=== PATIENT | female | born 1995 | race American Indian/Alaskan Native ===

== ENCOUNTER 2017-11-25 06:55 | Emergency (ER) | payer SELFPAY ==
[2017-11-25 07:27] LABS: Basophils # (Auto) 0.1 K/mm3 (0.0-0.1); Basophils % (Auto) 0.7 % (0.0-1.8); Eosinophils # (Auto) 0.1 K/mm3 (0.0-0.4); Eosinophils % (Auto) 1.2 % (0.0-4.3); Hematocrit 37.3 % (30.3-42.9); Hemoglobin 12.4 gm/dl (10.1-14.3); Lymphocytes % (Auto) 37.1 % (13.4-35.0); Mean Corpuscular HGB Conc 33 % (30-34); Mean Corpuscular Hemoglobin 28 pg (28-32); Mean Corpuscular Volume 84 fl (79-97); Monocytes # (Auto) 0.5 K/mm3 (0.0-0.8); Monocytes % (Auto) 6.2 % (0.0-7.3); Platelet Count 311 K/mm3 (140-440); Red Blood Count 4.42 M/mm3 (3.65-5.03); Red Cell Distribution Width 14.2 % (13.2-15.2)
[2017-11-25 07:28] LABS: Bilirubin,Urine NEG (Negative); Blood,Urine LG (Negative); Color,Urine Yellow (Yellow); Mucus,Urine FEW /HPF; Urobilinogen,Urine < 2.0 mg/dL (<2.0)
[2017-11-25 07:29] LABS: RBC,Urine > 182.0 /HPF (0.0-6.0); WBC,Urine > 182.0 /HPF (0.0-6.0)
[2017-11-25 07:42] LABS: Alanine Aminotransferase 11 units/L (7-56); Albumin 4.1 g/dL (3.9-5); BUN/Creatinine Ratio 13; Blood Urea Nitrogen 9 mg/dL (7-17); Calcium 9.2 mg/dL (8.4-10.2); Hemolysis Index 2
[2017-11-25] MEDS ORDERED: ROCEPHIN IM STA (07:59)
[2017-11-25] MEDS ORDERED: XYLOCAINE 1% MPF 5 mL INFILTRATI ONE (07:59)
--- NOTE | 2017-11-25 07:59 | Emergency Department Report ---
ED Abdominal Pain HPI - General Chief Complaint: Abdominal Pain Stated Complaint: ABD PAIN Time Seen by Provider: 11/25/17 07:48 Source: patient, family Mode of arrival: Ambulatory Limitations: No Limitations - History of Present Illness Initial Comments: This is a 22-year-old female reports urinary frequency and abdominal pain with some bleeding with urination that she noticed when she wiped. She said it started today and she ended her cycle 3 days ago. Denies any nausea or vomiting. Denies any fever or chills. Patient said she is here to be evaluated. Patient abdomen is crampy located to the pelvic area comes and goes and 5 out of 10. No alleviating or exacerbating factor and no medication taken for pain. Patient is a history of ectopic . She denies any urinary frequency or urgency. Unsure if she is . Denies passing any clots. MD Complaint: abdominal pain, other (urinary burning and left flank pain) Onset/Timin -: days(s) Location: suprapubic Radiation: none Migration to: no migration Severity: moderate Severity scale (0 -10): 5 Quality: cramping Consistency: intermittent Improves With: nothing Worsens With: nothing Associated Symptoms: dysuria, other (vaginal spotting). denies: nausea, vomiting, diarrhea, fever, chills, constipation, hematemesis, hematochezia, melena, hematuria, anorexia, syncope Treatments Prior to Arrival: other (none) - Related Data LMP Date: 11/18/17 Previous Rx's Medication Instructions Recorded Last Taken Type Ibuprofen [Motrin] 600 mg PO Q8H PRN #15 tablet 11/25/17 Unknown Rx Phenazopyridine [Pyridium] 200 mg PO TID PRN 3 Days #9 tab 11/25/17 Unknown Rx Sulfamethoxazole/Trimethoprim 1 each PO BID 10 Days #20 tablet 11/25/17 Unknown Rx [Bactrim DS TAB] Allergies Allergy/AdvReac Type Severity Reaction Status Date / Time No Known Allergies Allergy Unverified 11/25/17 07:09 ED Review of Systems ROS: Stated complaint: ABD PAIN Other details as noted in HPI Constitutional: denies: chills, fever Eyes: denies: eye pain, eye discharge, vision change ENT: denies: ear pain, throat pain Respiratory: denies: cough, shortness of breath, SOB with exertion, SOB at rest , wheezing Cardiovascular: denies: chest pain, palpitations, edema, syncope Gastrointestinal: abdominal pain. denies: nausea, vomiting, diarrhea, constipation, hematemesis, melena, hematochezia Genitourinary: dysuria, hematuria. denies: urgency, frequency, discharge, abnormal menses, dyspareunia Musculoskeletal: denies: back pain, joint swelling, arthralgia Skin: denies: rash, lesions Neurological: paresthesias. denies: headache, weakness, vertigo ED Past Medical Hx - Past Medical History Previous Medical History?: Yes Additional medical history: Ectopic - Surgical History Past Surgical History?: Yes Additional Surgical History: Ectopic - Family History Family history: no significant - Social History Smoking Status: Current Every Day Smoker Substance Use Type: Alcohol, Marijuana - Medications Home Medications: Home Medications Medication Instructions Recorded Confirmed Last Taken Type Ibuprofen [Motrin] 600 mg PO Q8H PRN #15 tablet 11/25/17 Unknown Rx Phenazopyridine [Pyridium] 200 mg PO TID PRN 3 Days #9 tab 11/25/17 Unknown Rx Sulfamethoxazole/Trimethoprim 1 each PO BID 10 Days #20 tablet 11/25/17 Unknown Rx [Bactrim DS TAB] ED Physical Exam - General Limitations: No Limitations General appearance: alert, in no apparent distress - Head Head exam: Present: atraumatic, normocephalic, normal inspection - Eye Eye exam: Present: normal appearance, PERRL, EOMI Pupils: Present: normal accommodation - ENT ENT exam: Present: normal exam, normal orophraynx, mucous membranes moist, TM's normal bilaterally, normal external ear exam - Neck Neck exam: Present: normal inspection, full ROM. Absent: tenderness, lymphadenopathy - Respiratory Respiratory exam: Present: normal lung sounds bilaterally. Absent: respiratory distress, chest wall tenderness - Cardiovascular Cardiovascular Exam: Present: regular rate, normal rhythm, normal heart sounds. Absent: systolic murmur, diastolic murmur - GI/Abdominal GI/Abdominal exam: Present: soft, normal bowel sounds. Absent: distended, tenderness, guarding, rebound, rigid, organomegaly, mass, bruit, pulsatile mass , hernia - Extremities Exam Extremities exam: Present: normal inspection, full ROM, normal capillary refill , other (my normal extremity exam). Absent: tenderness, pedal edema, joint swelling, calf tenderness - Back Exam Back exam: Present: normal inspection, full ROM, other (ambulates without any difficulties). Absent: tenderness, CVA tenderness (R), CVA tenderness (L), muscle spasm, paraspinal tenderness, vertebral tenderness, rash noted - Neurological Exam Neurological exam: Present: alert, oriented X3, normal gait - Psychiatric Psychiatric exam: Present: normal affect, normal mood - Skin Skin exam: Present: warm, dry, intact, normal color. Absent: rash ED Course Vital Signs 11/25/17 11/25/17 11/25/17 06:59 08: 09:15 Temperature 98.3 F Pulse Rate 89 86 Respiratory 18 16 16 Rate Blood Pressure 140/94 Blood Pressure 136/90 [Left] O2 Sat by Pulse 98 99 Oximetry - Reevaluation(s) Reevaluation #1: 11/25/17 09:05 Patient given Toradol 60 mg IM for abdominal cramping or relief and Rocephin 1 g IM for urinary tract infection. Reports relief of abdominal pain. ED Medical Decision Making - Lab Data Result diagrams: 11/25/17 07:14 11/25/17 07:14 Lab Results 11/25/17 11/25/17 11/25/17 Range/Units 07:14 07:14 07:14 WBC 8.2 (4.5-11.0) K/mm3 RBC 4.42 (3.65-5.03) M/mm3 Hgb 12.4 (10.1-14.3) gm/dl Hct 37.3 (30.3-42.9) % MCV 84 (79-97) fl MCH 28 (28-32) pg MCHC 33 (30-34) % RDW 14.2 (13.2-15.2) % Plt Count 311 (140-440) K/mm3 Lymph % (Auto) 37.1 H (13.4-35.0) % [place] % (Auto) 6.2 (0.0-7.3) % Eos % (Auto) 1.2 (0.0-4.3) % Baso % (Auto) 0.7 (0.0-1.8) % Lymph # 3.0 (1.2-5.4) K/mm3 [place] # 0.5 (0.0-0.8) K/mm3 Eos # 0.1 (0.0-0.4) K/mm3 Baso # 0.1 (0.0-0.1) K/mm3 Seg Neutrophils % 54.8 (40.0-70.0) % Seg Neutrophils # 4.5 (1.8-7.7) K/mm3 Sodium 140 (137-145) mmol/L Potassium 4.0 (3.6-5.0) mmol/L Chloride 105.2 (98-107) mmol/L Carbon Dioxide 26 (22-30) mmol/L Anion Gap 13 mmol/L BUN 9 (7-17) mg/dL Creatinine 0.7 (0.7-1.2) mg/dL Estimated GFR > 60 ml/min BUN/Creatinine Ratio 13 % Glucose 95 (65-100) mg/dL Calcium 9.2 (8.4-10.2) mg/dL Total Bilirubin 0.20 (0.1-1.2) mg/dL AST 16 (5-40) units/L ALT 11 (7-56) units/L Alkaline Phosphatase 49 (35-129) units/L Total Protein 7.6 (6.3-8.2) g/dL Albumin 4.1 (3.9-5) g/dL Albumin/Globulin Ratio 1.2 % HCG, Quant < 2 (0-4) mIU/mL Urine Color (Yellow) Urine Turbidity (Clear) Urine pH (5.0-7.0) Ur Specific Gunpowder (1.003-1.030) Urine Protein (Negative) mg/dL Urine Glucose (UA) (Negative) mg/dL Urine Ketones (Negative) mg/dL Urine Blood (Negative) Urine Nitrite (Negative) Urine Bilirubin (Negative) Urine Urobilinogen (<2.0) mg/dL Ur Leukocyte Esterase (Negative) Urine WBC (Auto) (0.0-6.0) /HPF Urine RBC (Auto) (0.0-6.0) /HPF U Epithel Cells (Auto) (0-13.0) /HPF Urine WBC Clumps /HPF Urine Mucus /HPF Blood Type Antibody Screen 11/25/17 11/25/17 Range/Units 07:14 Unknown WBC (4.5-11.0) K/mm3 RBC (3.65-5.03) M/mm3 Hgb (10.1-14.3) gm/dl Hct (30.3-42.9) % MCV (79-97) fl MCH (28-32) pg MCHC (30-34) % RDW (13.2-15.2) % Plt Count (140-440) K/mm3 Lymph % (Auto) (13.4-35.0) % [place] % (Auto) (0.0-7.3) % Eos % (Auto) (0.0-4.3) % Baso % (Auto) (0.0-1.8) % Lymph # (1.2-5.4) K/mm3 [place] # (0.0-0.8) K/mm3 Eos # (0.0-0.4) K/mm3 Baso # (0.0-0.1) K/mm3 Seg Neutrophils % (40.0-70.0) % Seg Neutrophils # (1.8-7.7) K/mm3 Sodium (137-145) mmol/L Potassium (3.6-5.0) mmol/L Chloride (98-107) mmol/L Carbon Dioxide (22-30) mmol/L Anion Gap mmol/L BUN (7-17) mg/dL Creatinine (0.7-1.2) mg/dL Estimated GFR ml/min BUN/Creatinine Ratio % Glucose (65-100) mg/dL Calcium (8.4-10.2) mg/dL Total Bilirubin (0.1-1.2) mg/dL AST (5-40) units/L ALT (7-56) units/L Alkaline Phosphatase (35-129) units/L Total Protein (6.3-8.2) g/dL Albumin (3.9-5) g/dL Albumin/Globulin Ratio % HCG, Quant (0-4) mIU/mL Urine Color Yellow (Yellow) Urine Turbidity Cloudy (Clear) Urine pH 7.0 (5.0-7.0) Ur Specific Gunpowder 1.015 (1.003-1.030) Urine Protein 100 mg/dl (Negative) mg/dL Urine Glucose (UA) Neg (Negative) mg/dL Urine Ketones Neg (Negative) mg/dL Urine Blood Lg (Negative) Urine Nitrite Neg (Negative) Urine Bilirubin Neg (Negative) Urine Urobilinogen < 2.0 (<2.0) mg/dL Ur Leukocyte Esterase Lg (Negative) Urine WBC (Auto) > 182.0 H (0.0-6.0) /HPF Urine RBC (Auto) > 182.0 (0.0-6.0) /HPF U Epithel Cells (Auto) 5.0 (0-13.0) /HPF Urine WBC Clumps 3+ /HPF Urine Mucus Few /HPF Blood Type A POSITIVE Antibody Screen Negative urine culture done - Radiology Data Radiology results: report reviewed CT scan abdomen and pelvis without contrast dictated by radiologist and report reviewed by myself. See below for details Patient: DIVYA SHORT MR#: [id number] : 1995 Acct:[id number] Age/Sex: 22 / F ADM Date: 11/25/17 Loc: ED Attending Dr: Ordering Physician: JERAD MALHOTRA Date of Service: 11/25/17 Procedure(s): CT abdomen pelvis wo con Accession Number(s): [id number] cc: JERAD MALHOTRA CT ABDOMEN PELVIS WITHOUT CONTRAST: HISTORY: Abdominal pain with hematuria and UTI. COMPARISON: none. TECHNIQUE: Helical CT in 1.25mm intervals without IV contrast. Sagittal and coronal reconstructions. FINDINGS: Lung bases: Normal. Liver: Normal. Biliary system: Normal. Pancreas: Normal. Spleen: Normal. Kidneys/ureters/bladder: The kidneys and ureters are normal. The bladder is empty but no gross abnormality is appreciated. No evidence for cystic disease, renal mass or nephrolithiasis on noncontrast CT. Adrenal glands: Normal. Aorta: Normal. Intestines: Normal. Appendix: Normal. Pelvic viscera: Normal. Ascites: None. Adenopathy: None. Musculoskeletal: Normal. IMPRESSION: Unremarkable CT scan of the abdomen and pelvis without contrast. Transcribed By: TTR Dictated By: COLLIN QUINTERO JR, MD Electronically Authenticated By: COLLIN QUINTERO JR, MD Signed Date/Time: 11/25/17827 DD/ 6 TD/TT: 11/25/17827 - Medical Decision Making This is a 22-year-old female here reporting pelvic pain, blood in urine and urinary burning. She says she finished her menstruation 11/18/2017 she is not sure if she is . She has a history of ectopic . Denies any nausea vomiting or fever or chills. She was seen and examined by myself. Physical exam is normal. Patient had urinalysis which shows she has acute cystitis with hematuria and urine culture was sent. CBC stable, hCG quantitative less than 2 and CMP is stable. Please refer to laboratory section for details and laboratory results. Patient also had CT scan of the abdomen and pelvis with IV contrast that shows unremarkable study. This is dictated by radiologist and report reviewed by myself. I discussed the patient that she has urinary tract infection and I also discussed laboratory findings the CT scan findings with her along with her test. She voiced understanding. Patient was treated with Rocephin for UTI and Toradol for abdominal pain. Dysuria-positive urinary tract infection and culture sent. Prescription for Pyridium Acute cystitis with hematuria-Rocephin 1 g IM 1 and patient discharged home with prescription for Atrovent DS. Abdominal pain-pain resolved. CT scan with negative findings, test is negative, CBC and CMP is stable. She was given Toradol 60 mg IM and discharged home with Motrin. Decision to surgeon in stable condition with prescription for Pyridium, Bactrim DS and Motrin and to follow up with her [employer] and/or [facility] in 2-3 days. She voiced understanding. Vital signs are stable she is afebrile and nontoxic in appearance and her pain is resolved. - Differential Diagnosis Kidney stones, Pyelonephritis, UTI, HCG, Fibroids Critical care attestation.: If time is entered above; I have spent that time in minutes in the direct care of this critically ill patient, excluding procedure time. ED Disposition Clinical Impression: Acute cystitis Qualifiers: Hematuria presence: with hematuria Qualified Code(s): N30.01 - Acute cystitis with hematuria Abdominal pain Qualifiers: Abdominal location: lower abdomen, unspecified Qualified Code(s): R10.30 - Lower abdominal pain, unspecified Disposition: - TO HOME OR SELFCARE Is pt being admited?: No Does the pt Need Aspirin: No Condition: Stable Instructions: Urinary Tract Infection in Women (ED), Dysuria (ED), Abdominal Pain (ED) Additional Instructions: Please increase her fluid intake Follow up a primary care physician in 2-3 days Take medication as prescribed Take Motrin with food as this medication can cause upset stomach Take Bactrim for urinary tract infection Prescriptions: Ibuprofen [Motrin] 600 mg PO Q8H PRN #15 tablet PRN Reason: Pain Phenazopyridine [Pyridium] 200 mg PO TID PRN 3 Days #9 tab PRN Reason: urinary burning and Sulfamethoxazole/Trimethoprim [Bactrim DS TAB] 1 each PO BID 10 Days #20 tablet Referrals: PRIMARY CARE, [Primary Care Provider] - 2-3 Days [facility] [Outside] - 2-3 Days Forms: Work/School Release Form(ED)
[2017-11-25] MEDS ORDERED: TORADOL IM ONE (08:00)
--- NOTE | 2017-11-25 08:34 | Cat Scan Report ---
CT ABDOMEN PELVIS WITHOUT CONTRAST: HISTORY: Abdominal pain with hematuria and UTI. COMPARISON: none. TECHNIQUE: Helical CT in 1.25mm intervals without IV contrast. Sagittal and coronal reconstructions. FINDINGS: Lung bases: Normal. Liver: Normal. Biliary system: Normal. Pancreas: Normal. Spleen: Normal. Kidneys/ureters/bladder: The kidneys and ureters are normal. The bladder is empty but no gross abnormality is appreciated. No evidence for cystic disease, renal mass or nephrolithiasis on noncontrast CT. Adrenal glands: Normal. Aorta: Normal. Intestines: Normal. Appendix: Normal. Pelvic viscera: Normal. Ascites: None. Adenopathy: None. Musculoskeletal: Normal. IMPRESSION: Unremarkable CT scan of the abdomen and pelvis without contrast.
[2017-11-25 09:17] VITALS: BP 136/90
== END 2017-11-25 09:15 | disposition home or self-care (01) ==
LOC: ED 06:55
DX: N30.01 Acute cystitis with hematuria (principal); F17.200 Nicotine dependence, unspecified, uncomplicated; F12.10 Cannabis abuse, uncomplicated
CPT/HCPCS: 36415; 74176; 80053; 81001; 84702; 85025; 86850; 86900; 86901; 96372; 99284; J0696; J1885

== ENCOUNTER 2017-12-22 22:14 | Emergency (ER) | payer SELFPAY ==
[2017-12-22 22:39] VITALS: BP 135/76
[2017-12-23] MEDS ORDERED: BENADRYL PO ONE (00:09)
[2017-12-23] MEDS ORDERED: REGLAN PO ONE (00:09)
[2017-12-23] MEDS ORDERED: TYLENOL PO ONE (00:09)
[2017-12-23] MEDS ORDERED: DECADRON IM ONE (00:09)
--- NOTE | 2017-12-23 00:29 | Emergency Department Report ---
ED ENT HPI - General Chief complaint: Sore Throat Stated complaint: SORE THROAT/MIGRAINE Time Seen by Provider: 12/23/17 00:00 Source: patient Mode of arrival: Ambulatory Limitations: No Limitations - History of Present Illness MD complaint: sore throat Onset/Timin -: days(s) Location: throat Severity: moderate Severity scale (0 -10): 5 Quality: burning, sharp Consistency: intermittent Improves with: none Worsens with: swallowing, position, eating Associated Symptoms: fever, toothache, pain with swallowing, sore throat, tinnitus, rhinorrhea - Related Data Previous Rx's Medication Instructions Recorded Last Taken Type Ibuprofen [Motrin] 600 mg PO Q8H PRN #15 tablet 11/25/17 Unknown Rx Phenazopyridine [Pyridium] 200 mg PO TID PRN 3 Days #9 tab 11/25/17 Unknown Rx Sulfamethoxazole/Trimethoprim 1 each PO BID 10 Days #20 tablet 11/25/17 Unknown Rx [Bactrim DS TAB] Acetaminophen [Tylenol Extra 1,000 mg PO QID PRN #60 tablet 12/23/17 Unknown Rx Strength] Amoxicillin 500 mg PO TID #30 capsule 12/23/17 Unknown Rx Benzocaine/Menth/Cetylpyrd 8 each MM Q2H PRN #3 packet 12/23/17 Unknown Rx [Cepacol X Strength] Metoclopramide [Reglan] 10 mg PO ACHS #30 tablet 12/23/17 Unknown Rx diphenhydrAMINE [Benadryl CAP] 25 mg PO Q6HR PRN #30 capsule 12/23/17 Unknown Rx Allergies Allergy/AdvReac Type Severity Reaction Status Date / Time No Known Allergies Allergy Verified 12/22/17 22:35 ED Dental HPI - General Chief complaint: Sore Throat Stated complaint: SORE THROAT/MIGRAINE Time Seen by Provider: 12/23/17 00:00 Source: patient Mode of arrival: Ambulatory Limitations: No Limitations - Related Data Previous Rx's Medication Instructions Recorded Last Taken Type Ibuprofen [Motrin] 600 mg PO Q8H PRN #15 tablet 11/25/17 Unknown Rx Phenazopyridine [Pyridium] 200 mg PO TID PRN 3 Days #9 tab 11/25/17 Unknown Rx Sulfamethoxazole/Trimethoprim 1 each PO BID 10 Days #20 tablet 11/25/17 Unknown Rx [Bactrim DS TAB] Acetaminophen [Tylenol Extra 1,000 mg PO QID PRN #60 tablet 12/23/17 Unknown Rx Strength] Amoxicillin 500 mg PO TID #30 capsule 12/23/17 Unknown Rx Benzocaine/Menth/Cetylpyrd 8 each MM Q2H PRN #3 packet 12/23/17 Unknown Rx [Cepacol X Strength] Metoclopramide [Reglan] 10 mg PO ACHS #30 tablet 12/23/17 Unknown Rx diphenhydrAMINE [Benadryl CAP] 25 mg PO Q6HR PRN #30 capsule 12/23/17 Unknown Rx Allergies Allergy/AdvReac Type Severity Reaction Status Date / Time No Known Allergies Allergy Verified 12/22/17 22:35 ED Review of Systems ROS: Stated complaint: SORE THROAT/MIGRAINE Other details as noted in HPI Constitutional: chills, fever Eyes: denies: eye pain, eye discharge, vision change ENT: throat pain, congestion Respiratory: denies: cough, shortness of breath, wheezing Cardiovascular: denies: chest pain, palpitations Endocrine: no symptoms reported Gastrointestinal: denies: abdominal pain, nausea, diarrhea Genitourinary: denies: urgency, dysuria, discharge Musculoskeletal: denies: back pain, joint swelling, arthralgia Skin: denies: rash, lesions Neurological: denies: headache, weakness, paresthesias Hematological/Lymphatic: denies: easy bleeding, easy bruising ED Past Medical Hx - Past Medical History Previous Medical History?: Yes Additional medical history: Ectopic - Surgical History Past Surgical History?: Yes Additional Surgical History: Ectopic - Social History Smoking Status: Current Every Day Smoker Substance Use Type: None - Medications Home Medications: Home Medications Medication Instructions Recorded Confirmed Last Taken Type Ibuprofen [Motrin] 600 mg PO Q8H PRN #15 tablet 11/25/17 Unknown Rx Phenazopyridine [Pyridium] 200 mg PO TID PRN 3 Days #9 tab 11/25/17 Unknown Rx Sulfamethoxazole/Trimethoprim 1 each PO BID 10 Days #20 tablet 11/25/17 Unknown Rx [Bactrim DS TAB] Acetaminophen [Tylenol Extra 1,000 mg PO QID PRN #60 tablet 12/23/17 Unknown Rx Strength] Amoxicillin 500 mg PO TID #30 capsule 12/23/17 Unknown Rx Benzocaine/Menth/Cetylpyrd 8 each MM Q2H PRN #3 packet 12/23/17 Unknown Rx [Cepacol X Strength] Metoclopramide [Reglan] 10 mg PO ACHS #30 tablet 12/23/17 Unknown Rx diphenhydrAMINE [Benadryl CAP] 25 mg PO Q6HR PRN #30 capsule 12/23/17 Unknown Rx ED Physical Exam - General Limitations: No Limitations General appearance: alert, in no apparent distress - Head Head exam: Present: atraumatic, normocephalic - Eye Eye exam: Present: normal appearance - ENT ENT exam: Present: normal exam, normal orophraynx, mucous membranes dry, mucous membranes moist, TM's normal bilaterally, normal external ear exam - Expanded ENT Exam Expanded Ear exam: Present: normal external inspection Mouth exam: Absent: trismus Teeth exam: Present: dental caries Throat exam: Positive: tonsillar erythema, tonsillomegaly, tonsillar exudate. Negative: R peritonsillar mass, L peritonsillar mass - Neck Neck exam: Present: normal inspection, tenderness, full ROM, lymphadenopathy. Absent: meningismus, thyromegaly - Expanded Neck Exam Expanded Neck exam: Absent: tenderness, midline deformity, anterior neck swelling, thyroid mass - Respiratory Respiratory exam: Present: normal lung sounds bilaterally. Absent: respiratory distress, wheezes, stridor, chest wall tenderness - Cardiovascular Cardiovascular Exam: Present: regular rate, normal rhythm, normal heart sounds. Absent: systolic murmur, diastolic murmur, rubs, gallop - GI/Abdominal GI/Abdominal exam: Present: soft, normal bowel sounds. Absent: mass, bruit - Rectal Rectal exam: Present: deferred - Extremities Exam Extremities exam: Present: normal inspection - Back Exam Back exam: Present: normal inspection - Neurological Exam Neurological exam: Present: alert, oriented X3 - Psychiatric Psychiatric exam: Present: normal affect, normal mood - Skin Skin exam: Present: warm, dry, intact, normal color. Absent: rash ED Course Vital Signs 12/22/17 22:35 Temperature 99.5 F Pulse Rate 92 H Respiratory 16 Rate Blood Pressure 135/76 O2 Sat by Pulse 96 Oximetry ED Medical Decision Making - Medical Decision Making Patient appears well with improvedis pharyngitis patient has history of recurrent pharyngitis which revealed amoxicillin and prednisone burst throat lozenges patient will follow with PCP in 2-3 days patient verbalized agreement and understanding of same Critical care attestation.: If time is entered above; I have spent that time in minutes in the direct care of this critically ill patient, excluding procedure time. ED Disposition Clinical Impression: Pharyngitis Qualifiers: Pharyngitis/tonsillitis etiology: unspecified etiology Qualified Code(s): J02.9 - Acute pharyngitis, unspecified Disposition: TO HOME OR SELFCARE Is pt being admited?: No Does the pt Need Aspirin: No Condition: Good Instructions: Pharyngitis (ED) Prescriptions: Acetaminophen [Tylenol Extra Strength] 1,000 mg PO QID PRN #60 tablet PRN Reason: Headache Amoxicillin 500 mg PO TID #30 capsule Benzocaine/Menth/Cetylpyrd [Cepacol X Strength] 8 each MM Q2H PRN #3 packet PRN Reason: Sore Throat diphenhydrAMINE [Benadryl CAP] 25 mg PO Q6HR PRN #30 capsule PRN Reason: Headache Metoclopramide [Reglan] 10 mg PO ACHS #30 tablet Referrals: PRIMARY CARE, [Primary Care Provider] - 3-5 Days Forms: Work/School Release Form(ED) Time of Disposition: 00:42
== END 2017-12-23 00:49 | disposition home or self-care (01) ==
LOC: ED 22:14
DX: J02.9 Acute pharyngitis, unspecified (principal); F17.200 Nicotine dependence, unspecified, uncomplicated
CPT/HCPCS: 96372; 99282; J1100